=== PATIENT | female | born 1975 ===

== ENCOUNTER → 2017-08-14 | Outpatient (CLI) | payer OTHER | LOC: CIMAGING 10:11 | PROVIDERS: ATTEND Internal Medicine | DX: E89.0 Postprocedural hypothyroidism (principal); E04.1 Nontoxic single thyroid nodule; D64.9 Anemia, unspecified; R53.83 Other fatigue | CPT/HCPCS: 76536-PO ==

== ENCOUNTER → 2017-08-28 | Outpatient (CLI) | payer OTHER ==
[~2017-08-28] MED LIST: LIDOCAINE 1% 300 MG/30 ML SDV ONE
--- NOTE | 2017-08-28 18:22 | PDRADPN ---
Radiology Procedure Note Date of Procedure: 08/28/17 Radiologist: Gonzalez Foy Anesthesia: Local (Specify) Pre-op Diagnosis: neck mass Post-op Diagnosis: neck mass Indication: confirm suspected ectopic thyroid Procedure: Three 25G FNAs obtained under US guidance Finding(s): good specimen volume Inf/Abcess present in the surg proc area at time of surgery?: No Complications: none Specimen(s): Three 25G FNA
== END ==
LOC: FIMAGING 11:52
PROVIDERS: ATTEND Radiology Diagnostic Radiology
PROC: 079 Lymphatic and Hemic Systems, Drainage (ICD-10-PCS; principal; 2017-08-28)
PROC: BG44ZZZ Ultrasonography of Thyroid Gland (ICD-10-PCS; principal; 2017-08-28)
DX: E04.1 Nontoxic single thyroid nodule (principal)

== ENCOUNTER 2017-09-29 08:54 | Inpatient (IN) | payer OTHER ==
[2017-09-29] MEDS ORDERED: KETOROLAC 30 MG/1 ML SDV IVP ONE (09:03)
[2017-09-29] MEDS ORDERED: MIDAZOLAM 2 MG/2 ML VIAL IVP PRN (09:03)
[2017-09-29] MEDS ORDERED: SCOPOLAMINE HYDROBROMIDE 1 MG/3 DAYS PATCH TD ONE ×2 (09:03→09:41)
[2017-09-29] MEDS ORDERED: fentaNYL 100 MCG/2 ML INJ IVP PRN (09:03)
[2017-09-29] MEDS ORDERED: MEPERIDINE 25 MG/ML SYR IVP PRN (09:03)
[2017-09-29] MEDS ORDERED: NALOXONE HCL 0.4 MG/ML INJ IVP PRN ×2 (09:03→10:49)
[2017-09-29] MEDS ORDERED: DEXAMETHASONE 10 MG/ML VIAL IVP ONE (09:03)
[2017-09-29] MEDS ORDERED: NS 1,000 ML IV ONE (09:03)
[2017-09-29] MEDS ORDERED: FLUMAZENIL 0.5 MG/5 ML MDV IVP PRN (09:03)
[2017-09-29] MEDS ORDERED: fentaNYL 100 MCG/2 ML INJ ONE (09:08)
[2017-09-29] MEDS ORDERED: FLUMAZENIL 0.5 MG/5 ML MDV IVP ONE (09:08)
[2017-09-29] MEDS ORDERED: KETOROLAC 30 MG/1 ML SDV ONE (09:08)
[2017-09-29] MEDS ORDERED: MIDAZOLAM 2 MG/2 ML VIAL ONE (09:08)
[2017-09-29] MEDS ORDERED: NALOXONE HCL 0.4 MG/ML INJ ONE (09:08)
[2017-09-29] MEDS ORDERED: DEXAMETHASONE 10 MG/ML VIAL ONE (09:08)
[2017-09-29] MEDS ORDERED: DEXMEDETOMIDINE IN 0.9 % NACL 50 ML IV ONE (09:30)
[2017-09-29 09:36] LABS: PLATELET COUNT 345 10^3/uL (150-400)
[2017-09-29 09:45] LABS: INR 0.96 (0.83-1.16)
--- NOTE | 2017-09-29 10:10 | PDGENHP ---
History & Physical Chief Complaint: SYMPTOMATIC UTERINE FIBROIDS History of Present Illness: FATIGUE, DUB. Pertinent Past, Social, Family History: WISDOM TEETH EXTRACTION, CATARACT, C- SECTION, GASTRIC BYPASS, THYROID REMOVAL Relevant Physical Exam: NO PAIN/DISTRESS CURRENTLY Cardiorespiratory Assessment: RRR,CTA
--- NOTE | 2017-09-29 10:13 | PDPROPOC ---
Sedation Plan of Care Sedation Plan of Care: vital signs stable, mental status noted, patient educated of risks, benefits, alternatives, patient can tolerate sedation ASA Classification: ASA 2 Planned drugs: fentanyl, midazolam Mallampati Score: Class 2 Mallampati Reference Image: Patient passed 3-3-2 rule?: Yes
[2017-09-29] MEDS ORDERED: IOPAMIDOL (ISOVUE-300) 100 ML BTL ONE ×2 (10:25→12:10)
[2017-09-29] MEDS ORDERED: ONDANSETRON 4 MG/2 ML VIAL ONE (10:53)
[2017-09-29] MEDS ORDERED: NITROGLYCERIN/D5W 50 MG/250 ML BOTTLE IV ONE (11:18)
[2017-09-29] MEDS ORDERED: BUPIVACAINE 0.5% 30 ML SDV ONE (12:09)
[2017-09-29] MEDS: HYDROmorphONE/DILAUDID 6 MG/30 ML PCA IV PRN (12:18)
[2017-09-29] MEDS ORDERED: MAGNESIUM HYDROXIDE 30 ML UDCUP PO PRN (12:31)
[2017-09-29] MEDS ORDERED: LACTULOSE 20 GM/30 ML UDCUP PO PRN (12:31)
[2017-09-29] MEDS ORDERED: POLYETHYLENE GLYCOL 3350 17 GM PKT PO PRN (12:31)
[2017-09-29] MEDS ORDERED: BISACODYL 10 MG SUPP PR PRN (12:31)
--- NOTE | 2017-09-29 12:37 | PDRADPN ---
Radiology Procedure Note Date of Procedure: 09/29/17 Radiologist: Melissa Larios Anesthesia: IV Sedation Pre-op Diagnosis: UTERINE FRIBROIDS Post-op Diagnosis: SAME Indication: SIGNIFICANT BLEEDING Procedure: UAE, HYPOGASTRIC BLOCK Inf/Abcess present in the surg proc area at time of surgery?: No Complications: NONE
[2017-09-29] MEDS ORDERED: LIDOCAINE 1% 300 MG/30 ML SDV ONE (13:19)
[2017-09-29] MEDS: PROMETHAZINE HCL 25 MG/ML INJ IVP PRN ×2 (13:39→21:22)
[2017-09-29] MEDS: NS 1,000 ML IV SCH ×2 (13:49→16:51)
[2017-09-29] MEDS: morphINE SR 15 MG TAB PO SCH ×2 (16:51→21:11)
[2017-09-29] MEDS: ADDERALL 10 MG TAB PO SCH (18:09)
[2017-09-29] MEDS: KETOROLAC 30 MG/1 ML SDV IVP SCH (18:11)
[2017-09-29] MEDS: SENNOSIDES/DOCUSATE SODIUM TAB PO SCH (21:11)
[2017-09-30] MEDS: KETOROLAC 30 MG/1 ML SDV IVP SCH ×2 (00:25→06:08)
[2017-09-30] MEDS: SENNOSIDES 17.6 MG/10 ML UDL PO SCH ×2 (00:59→11:19)
[2017-09-30] MEDS: HYDROmorphONE/DILAUDID 6 MG/30 ML PCA IV PRN ×2 (06:10→14:40)
[2017-09-30] MEDS: ADDERALL 10 MG TAB PO SCH (07:50)
[2017-09-30] MEDS: SENNOSIDES/DOCUSATE SODIUM TAB PO SCH ×2 (08:53→22:03)
[2017-09-30] MEDS: morphINE SR 15 MG TAB PO SCH ×2 (08:54→19:46)
[2017-09-30] MEDS ORDERED: levOFLOXACIN 500 MG/DEXTROSE 100 ML IV ONE (09:00)
[2017-09-30] MEDS ORDERED: DEXTROAMPHETAMINE PO SCH (09:00)
[2017-09-30] MEDS ORDERED: AMPHETAMINE PO SCH (09:00)
[2017-09-30] MEDS: IBUPROFEN 600 MG TAB PO SCH ×3 (11:58→23:51)
[2017-09-30] MEDS: LEVOTHYROXINE 125 MCG TAB PO SCH (13:54)
--- NOTE | 2017-09-30 14:08 | SOAPPROG ---
SOAP Progress Note Assessment/Plan: Assessment: PPD 1 S/P UFE. NOT ABLE TO WEAN OFF OF FINE CRAFT ARTIST DUE TO CONTINUED PAIN, REPORTEDLY AT 8/10 WITH ATTEMPTS AT WEANING FINE CRAFT ARTIST. PATIENT DOES NOT FEEL READY TO GO HOME YET. Plan: CONTINUE ATTEMPTS AT WEANING FINE CRAFT ARTIST. TRANSITION PATIENT TO INPATIENT STATUS FOR PAIN CONTROL. 09/30/17 14:06 Subjective: WAXING AND WANING PAIN. WAS ABLE TO DECREASE FINE CRAFT ARTIST DOSE FOR A BIT, NOW BACK TO HIGHER DOSE OF 0.4. OVERALL FEELS FINE OTHERWISE. HAD GOOD BOWEL MOVEMENTS. SHOWERED. Objective: Vital Signs Temp Pulse Resp BP Pulse Ox 36.9 C 96 20 119/82 H 97 09/30/17 12:00 09/30/17 12:00 09/30/17 10:00 09/30/17 08:00 09/30/17 13:00 Laboratory Results 09/29/17 09:25 09/29/17 09:25 09/29/17 09/30/17 10/01/17 05:59 05:59 05:59 Intake Total 3536.3 550 Output Total 1950 2600 Balance 1586.3 -2050 PT 13.0 SEC (12.0-15.0) 09/29/17 09:25 INR 0.96 (0.83-1.16) 09/29/17 09:25 NO HEMATOMA. ABD SOFT. ICD10 Worksheet Patient Problems: Problems Problem Status Onset Uterine fibroid Acute - ICD10 Problem Qualifiers (1) Uterine fibroid Qualifiers: Uterine leiomyoma location: submucous Qualified Code(s): D25.0 - Submucous leiomyoma of uterus
[2017-09-30] MEDS ORDERED: ALBUTEROL 3 ML DEYVIAL IH PRN (14:09)
[2017-09-30] MEDS ORDERED: DEXTROAMPHETAMINE PO PRN (14:20)
[2017-09-30] MEDS ORDERED: AMPHETAMINE PO PRN (14:20)
--- NOTE | 2017-09-30 15:03 | PDMN ---
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 infusion. MD anticipates > 2 MN LOS for ongoing med nec for eval and TX of above.
[2017-09-30] MEDS: LIOTHYRONINE SODIUM 5 MCG TAB PO SCH (16:37)
[2017-10-01] MEDS ORDERED: diphenhydrAMINE 25 MG CAP PO PRN ×2 (00:28→01:00)
[2017-10-01] MEDS: LEVOTHYROXINE 125 MCG TAB PO SCH (06:08)
[2017-10-01] MEDS: IBUPROFEN 600 MG TAB PO SCH ×2 (06:17→12:39)
[2017-10-01] MEDS: SENNOSIDES/DOCUSATE SODIUM TAB PO SCH (06:22)
[2017-10-01] MEDS ORDERED: DEXTROAMPHETAMINE ER 15 MG CAP PO PRN (09:00)
[2017-10-01] MEDS ORDERED: oxyCODONE IR 5 MG TAB PO PRN (09:42)
[2017-10-01] MEDS: LIOTHYRONINE SODIUM 5 MCG TAB PO SCH (10:30)
[2017-10-01 12:36] VITALS: BP 118/75
--- NOTE | 2017-10-01 12:46 | SOAPPROG ---
SOAP Progress Note Assessment/Plan: Assessment: PPD 1 S/P UFE. NOT ABLE TO WEAN OFF OF COOK CHIEF DUE TO CONTINUED PAIN, REPORTEDLY AT 8/10 WITH ATTEMPTS AT WEANING COOK CHIEF. PATIENT DOES NOT FEEL READY TO GO HOME YET. Plan: CONTINUE ATTEMPTS AT WEANING COOK CHIEF. TRANSITION PATIENT TO INPATIENT STATUS FOR PAIN CONTROL. 09/30/17 14:06 10/01/17 12:45 D/C HOME D/C INSTRUCTIONS GIVEN TO PATIENT. Subjective: FEELS MUCH BETTER TODAY. NO NAUSEA WITH OXY IR. Objective: Vital Signs Temp Pulse Resp BP Pulse Ox 37.4 C 85 16 118/75 96 10/01/17 12:00 10/01/17 12:00 10/01/17 12:00 10/01/17 12:00 10/01/17 11:00 Laboratory Results 09/29/17 09:25 09/29/17 09:25 09/30/17 10/01/17 10/02/17 05:59 05:59 05:59 Intake Total 3536.3 3950 Output Total 1950 3500 Balance 1586.3 450 PT 13.0 SEC (12.0-15.0) 09/29/17 09:25 INR 0.96 (0.83-1.16) 09/29/17 09:25 ICD10 Worksheet Patient Problems: Problems Problem Status Onset Uterine fibroid Acute - ICD10 Problem Qualifiers (1) Uterine fibroid Qualifiers: Uterine leiomyoma location: submucous Qualified Code(s): D25.0 - Submucous leiomyoma of uterus
== END 2017-10-01 13:00 | disposition home or self-care (01) | DRG 941 ==
LOC: FIMAGING 08:54 → F3E 12:31 → OBSVTOIN 12:31 → FOB 14:52
PROVIDERS: ADMIT Radiology Diagnostic Radiology; ATTEND Radiology Diagnostic Radiology
DX: G89.18 Other acute postprocedural pain (principal); D25.9 Leiomyoma of uterus, unspecified
CPT/HCPCS: C1760; C1769; C1894; G0378; J1100; J1170; J1644; J1885; J1956; J2250; J2310; J2405; J2550; J3010; Q9967

== ENCOUNTER → 2018-07-18 | Outpatient (CLI) | payer OTHER | LOC: FIMAGING 09:23 | PROVIDERS: ATTEND Obstetrics & Gynecology | DX: Z12.31 Encounter for screening mammogram for malignant neoplasm of breast (principal) ==